=== PATIENT | female | born 1975 | race Caucasian/White ===

== ENCOUNTER 2018-09-02 01:43 | Outpatient (CLI) | payer OTHER, SELFPAY ==
[2018-09-02 07:48] LABS: Abs Immature Grans 0.01 k/cumm (0.0-0.09); Absolute Basophil Count 0.02 k/cumm (0.0-0.2); Absolute Eosinophil Count 0.22 k/cumm (0.0-0.7); Absolute Lymphocyte Count 2.04 k/cumm (1.2-3.4); Absolute Monocyte Count 0.52 k/cumm (0.11-0.7); Absolute Neutrophil Count 4.52 k/cumm (1.2-6.7); Basophils % 0.3; HCT 38.7 % (36.0-46.0); HGB 12.9 g/dL (12.0-15.5); Immature Grans % 0.1; Lymphocytes % 27.8; Mean Corp. HGB Concentration 33.3 g/dL (32.0-36.0); Mean Corpuscular Hemoglobin 29.5 pg (27.0-33.0); Mean Corpuscular Volume 88.4 fL (80-95); Mean Platelet Volume 9.4 fL (8.0-11.0); Monocytes % 7.1; Neutrophils % 61.7; Platelet Count 288 x1000/uL (130-400); RBC 4.38 m/cumm (4.00-5.20); RBC Distribution Width 12.9 % (11.7-14.6); White Blood Cell Count 7.33 k/cumm (4.4-10.8)
[2018-09-02 08:33] LABS: ALT 17 U/L (12-78); AST 10 U/L (15-37); Albumin 3.6 g/dL (3.4-5.0); Alkaline Phosphatase 65 U/L (46-116); Anion Gap 10.2 mmol/L (3-11); BUN 15 mg/dL (7-18); Bilirubin, Total 0.4 mg/dL (0.2-1.0); CO2 26.8 mmol/L (21.0-32.0); CREATININE 0.88 mg/dL (0.55-1.02); Calcium 8.6 mg/dL (8.5-10.1); Chloride 103 mmol/L (98-107); Glucose 99 mg/dL (70-100); Sodium 140 mmol/L (136-145); Total Protein 7.2 g/dL (6.4-8.2)
== END 2018-09-02 02:03 ==
PROVIDERS: PCP Family Medicine; Visit Provider Internal Medicine
DX: R10.9 Unspecified abdominal pain (principal)
CPT/HCPCS: 36415; 80053; 85025

== ENCOUNTER 2018-09-03 00:38 | Outpatient (CLI) | payer OTHER, SELFPAY ==
--- NOTE | 2018-09-03 09:00 | DI.CT_ITS ---
SYMPTOM/DIAGNOSIS: RT ABD PAIN, R10.[address]: CT scan of the abdomen and pelvis was performed following the uneventful administration of intravenous and oral contrast material. Comparison is made with 07/19/07. The visualized lung bases are clear. The liver is normal in size. There is again seen a 1.3 cm. enhancing mass in the posterior segment of the right lobe of the liver most suggestive of a hepatic hemangioma. It is unchanged in size and appearance compared to the prior examination. No suspicious hepatic lesions are seen. The portal and superior mesenteric veins are patent. The patient is status post cholecystectomy. No biliary ductal dilatation is present. The pancreas is unremarkable as are the spleen and adrenal glands. The kidneys show normal and symmetric enhancement. No evidence of a solid renal mass or obstruction is present. The urinary bladder is intact. There is a tampon seen in the vagina. The reproductive organs are otherwise unremarkable. The abdominal aorta is of normal caliber. No significant abdominal or pelvic adenopathy, ascites or pneumoperitoneum is present. Note is made of a moderate sized fat containing anterior abdominal wall hernia. The hernia lies approximately 11 cm. superior to the umbilicus. There is diverticulosis of the colon but no evidence of acute diverticulitis. The bowel shows no evidence of obstruction or inflammation. There is a normal appendix present. The bones are intact. Mild degenerative changes are seen in the spine. IMPRESSION: 1. No evidence of an acute abdomen. 2. Moderate sized fat containing upper anterior abdominal wall hernia. 3. Colonic diverticulosis but no evidence of acute diverticulitis.
[2018-09-03] MEDS: Omnipaque 350 MG/ML 50 ML BTL IJ (09:56)
[2018-09-03] MEDS: Breeza Beverage 473 ML BTL PO (09:57)
[2018-09-03] MEDS: Omnipaque 350 MG/ML 100 ML BTL IJ (09:59)
== END 2018-09-03 00:58 ==
PROVIDERS: PCP Family Medicine; Visit Provider Internal Medicine
DX: R10.31 Right lower quadrant pain (principal); K43.9 Ventral hernia without obstruction or gangrene; K57.30 Diverticulosis of large intestine without perforation or abscess without bleeding
CPT/HCPCS: 74177; J3490; Q9967

== ENCOUNTER 2018-11-12 07:28 | Day surgery (SDC) | payer OTHER, SELFPAY ==
[2018-11-12 07:56] VITALS: BP 124/70; PULSE 96; RESP 16; TEMP 36; O2SAT 96
[2018-11-12] MEDS: Lactated Ringers 1,000 ML 30 ML IV ×2 (08:30→11:21)
[2018-11-12] MEDS: Bupivacaine 0.25% Pres-Free 30 ML VIAL ×2 (10:30→11:41)
--- NOTE | 2018-11-12 11:10 | HERN_PTH ---
PATIENT: Davina Dixon LOC: [facility] U#:[id number] AGE/SX: 42/F ROOM: RE11/12/[address]: Jeevan Thomas III : 1975 BED: DIS: 11/12/2018 SPEC #: [id number] RECD: 11/12/18 12:57 STATUS: OSCAR REPrincess #: [id number] GILBERTO: 11/12/18 11:[address]: Jeevan Thomas III DEPT: Surgical Specimen RECD BY: Whitney Ross ENTERED: 11/12/18 12:58 SP TYPE: Hernia Sac OTHR DR: Roseann Davalos MD Tissues: 1 - HERNIA SAC,OTHER Procedures: GROSS AND MICRO LEVEL 2 Comments: [id number]
--- NOTE | 2018-11-12 11:52 | W.PM.OP ---
Date of service: 11/12/18 Time of Service: 11:56 Operative Note DATE OF PROCEDURE: 11/12/18 PRE-OP DIAGNOSIS: incarcerated incisional epigastric hernia POST-OP DIAGNOSIS: same PROCEDURE: primary repair of incarcerated incisional hernia, layered closure SURGEON: Jeevan Thomas III ASSISTING SURGEON: Slime Sales ANESTHESIA: GETA ESTIMATED BLOOD LOSS: 10 PATHOLOGY: other COMPLICATIONS: None Patient was transported to: PACU Patient's condition: stable Indications: pt had 1.9x1.4cm hernia seen on ct pt explained the RBA and a primary repair was chosen her biggest risk factor for recurrence is obesity Findings: large 8cm fat most likely falciform Procedure Description: pt underwent TAP abd block, timeout done abd preped and draped local given, ioban applied 3cm incision blunt disection to the hernia the defect was identified and was as big as my index finger there was a considerable incarcerated fat most likely falciform this could not be reduced and this was amputated with cautery the defect was closed with 5 interupted vertical matress o-prolene copious irrigation layered closure of the wound with 2-0 vicryl, 4-0 monocryl and dermabond debriefing done pt dc home pt notified of case findings
--- NOTE | 2018-11-12 11:53 | W.PM.DSUDISC ---
Discharge Plan Disposition Patient Disposition: HOME Condition: Stable Discharge Details Reason For Visit: incisional hernia Attending Provider: Jeevan Thomas III Primary Care Provider: Rsoeann Davalos Home Meds and New Rx's Prescriptions: New acetaminophen [Tylenol 8 Hour] 650 mg tablet extended release 650 mg PO Q6H PRN PRN (Reason: fever or pain) Qty: 30 RF: 0 ibuprofen 600 mg tablet 600 mg PO QID PRN (Reason: fever or pain) Qty: 30 RF: 0 Discharge Instructions Referrals: Jeevan Thomas III, DO [OSTEOPATHIC DOCTOR] - Activity:: Activity as Tolerated Shower/Bathe:: 24 hours Diet:: As Tolerated Discharge Orders Discharge Orders: Discharge Order (Routine); Ordered 11/12/18 Ordered By: Jeevan Thomas III
[2018-11-12 12:30] VITALS: BP 122/80; PULSE 71; RESP 18; TEMP 37; O2SAT 96
[2018-11-12 13:30] VITALS: BP 112/68; PULSE 89; RESP 16; TEMP 37.8; O2SAT 97
[2018-11-12] MEDS: oxyCODONE 5 MG TAB PO (13:30)
--- NOTE | 2018-11-12 14:27 | W.PM.DSUDISC ---
Discharge Plan Disposition Patient Disposition: HOME Condition: Stable Discharge Details Reason For Visit: incisional hernia Attending Provider: Jeevan Thomas III Primary Care Provider: Roseann Davalos Home Meds and New Rx's Prescriptions: New acetaminophen [Tylenol 8 Hour] 650 mg tablet extended release 650 mg PO Q6H PRN PRN (Reason: fever or pain) Qty: 30 RF: 0 ibuprofen 600 mg tablet 600 mg PO QID PRN (Reason: fever or pain) Qty: 30 RF: 0 oxycodone [OxyContin] 10 mg tablet,oral only,ext.rel.12 hr 10 mg PO Q12H PRN (Reason: pain) Qty: 10 RF: 0 Discharge Instructions Instructions: Open Herniorrhaphy (DC) Stand Alone Forms: Anes.Nerve Block Instructions, DSU Post op Instructions, Jeanne Gallegos (DSU) Referrals: Jeevan Thomas III, DO [OSTEOPATHIC DOCTOR] - Activity:: Activity as Tolerated Shower/Bathe:: 24 hours Diet:: As Tolerated Discharge Orders Discharge Orders: Discharge Order (Routine); Ordered 11/12/18 Ordered By: Jeevan Thomas III
== END 2018-11-12 14:46 | disposition home or self-care (01) ==
PROVIDERS: PCP Family Medicine; Visit Provider Surgery
PROC: 0WQF4ZZ Repair Abdominal Wall, Percutaneous Endoscopic Approach (ICD-10-PCS; CPT 49560; principal; 2018-11-12 09:00)
DX: K43.6 Other and unspecified ventral hernia with obstruction, without gangrene (principal); K21.9 Gastro-esophageal reflux disease without esophagitis
CPT/HCPCS: 49560; 76942; 81025; 88302; J0131; J0690; J1100; J1885; J2250; J2405; J3010

== ENCOUNTER 2020-04-26 10:31 | Outpatient (CLI) | payer BC, SELFPAY ==
[2020-04-28 04:56] LABS: SARS-CoV-2 RNA Undetected (Undetected); SARS-CoV-2 Specimen Source Nasopharynx
== END 2020-04-26 10:51 ==
PROVIDERS: PCP Family Medicine; Visit Provider Family Medicine
DX: Z11.59 Encounter for screening for other viral diseases (principal)
CPT/HCPCS: U0003

== ENCOUNTER 2020-10-01 16:38 | Outpatient (REF) | payer OTHER, SELFPAY ==
[2020-10-03 22:14] LABS: Patient Race White; SARS-CoV-2 RNA Undetected (Undetected); SARS-CoV-2 Specimen Source Nasal
== END 2020-10-01 16:58 ==
LOC: LBN 16:38
PROVIDERS: PCP Family Medicine; Visit Provider Nurse Practitioner Adult Health
DX: R05 Cough (principal); R06.2 Wheezing; R09.82 Postnasal drip
CPT/HCPCS: U0003

== ENCOUNTER 2020-10-08 03:36 | Outpatient (CLI) | payer OTHER, SELFPAY ==
--- NOTE | 2020-10-08 12:26 | DI.RAD_ITS ---
EXAM: XR CHEST 2V PA LATERAL CLINICAL HISTORY: Cough,WHEEZE,R05,R06.2 TECHNIQUE: 2D digital imaging was performed. COMPARISON: CR LEFT SHOULDER COMPLETE from 11/28/2015 FINDINGS: MEDIASTINUM: Normal. HEART: Normal. PULMONARY VASCULATURE: Normal. No peribronchial thickening. LUNGS: Clear. No visible interstitial changes or emphysematous changes. PLEURAL SPACE: No pleural effusion or pneumothorax. BONE:Normal. IMPRESSION: No acute pulmonary findings. DATA REPOSITORY: RADIATION DOSE DELIVERED:
== END 2020-10-08 03:56 ==
PROVIDERS: PCP Family Medicine; Visit Provider Nurse Practitioner Adult Health
DX: R05 Cough (principal); R06.2 Wheezing
CPT/HCPCS: 71046

== ENCOUNTER 2021-09-19 17:21 | Outpatient (REF) | payer OTHER, SELFPAY ==
--- NOTE | 2021-09-19 15:40 | PAPFT_PTH ---
PATIENT: Davina Dixon LOC: [facility]#:[id number] AGE/SX: 45/F ROOM: RE09/19/[address]: Roseann Davalos MD : 1975 BED: DIS: 09/19/2021 SPEC #: [id number] RECD: 09/20/21 13:01 STATUS: OSCAR REQ #: [id number] GILBERTO: 09/19/21 15:[address]: Roseann Davalos DEPT: [facility] Cytology RECD BY: Whitney Ross ENTERED: 09/20/21 13:02 SP TYPE: PAPFT OTHR DR: Timbo Cevallos Tissues: 1 - CX/ENDOCX FOR PAP SMEARS Procedures: PAP THIN PREP/UVM Screening HPV DNA PROBE Comments: [id number]
== END 2021-09-19 17:22 | disposition home or self-care (01) ==
LOC: LBN 17:21
PROVIDERS: PCP Family Medicine; Visit Provider Family Medicine
DX: Z12.4 Encounter for screening for malignant neoplasm of cervix (principal); Z11.51 Encounter for screening for human papillomavirus (HPV)
CPT/HCPCS: 88142; 87624

== ENCOUNTER 2022-01-18 01:57 | Outpatient (CLI) | payer OTHER, SELFPAY ==
--- NOTE | 2022-01-18 07:00 | DI.MAMMO_ITS ---
Exam(s) MAMMO SCREENING EXAM: MAMMO SCREENING CLINICAL HISTORY: screening,z12.39. TECHNIQUE: Bilateral full field digital CC and MLO mammographic images were obtained with 3D tomosyn thesis and utilizing computer aided detection (CAD). COMPARISON: None. This is a baseline screening mammogram on this 46-year-old patient with no breast complaints and no immediate family history. FINDINGS: No significant radiograph findings in right breast. In the left breast there is asymmetric density possible nodule seen the cc view located 7 cm from nip ple, laterally and measuring approximately 5 x 3 millimeters. Slightly medial to this is another asy mmetric density, being less concerning on 3D imaging. There are no malignant-appearing microcalcification groups in this region or elsewhere in either [address]. There is no significant architectural distortion nor skin thickening-retraction. IMPRESSION: 1. No radiographic evidence of malignancy in right breast. 2. Possible nodules towards the lateral aspect of the left breast. Spot compression views and ultras ound left breast recommended. BI-RADS Category 0 - Assessment Incomplete: Need additional imaging evaluation Breast Density - Category B - Scattered areas of fibroglandular density Breast density Category C or D implies that the patient has dense breast tissue. Dense breast tissue can make it harder to find cancer on a mammogram. Dense breast tissue is also associated with an incr eased risk of breast cancer. This information about the result of the mammogram report was provided to the patient to raise their awareness. Use this report when you speak with the patient about their risks for breast cancer, which includes their family history. At that time, you may recommend additional screening tests (Ultrasoun d or MRI) as these tests may add significant information. A negative radiographic report should not delay biopsy if a dominant or clinically suspicious mass is present. Up to ten percent of cancers are not identified on mammography. A negative report may reinforce clinical impression. Adenosis and dense breasts may obscure an underlying neoplasm. False positive reports average 6 to 10%. Patient will receive a letter notifying them of these results.
== END 2022-01-18 02:17 ==
PROVIDERS: PCP Family Medicine; Visit Provider Family Medicine
DX: Z12.31 Encounter for screening mammogram for malignant neoplasm of breast (principal); R92.8 Other abnormal and inconclusive findings on diagnostic imaging of breast
CPT/HCPCS: 77063; 77067

== ENCOUNTER 2022-02-02 02:52 | Outpatient (CLI) | payer OTHER, SELFPAY ==
--- NOTE | 2022-02-02 | DI.MAMMO_ITS ---
Exam(s) MG MAMMO SCREEN CALL BACK UNI US BREAST LT LIMITED EXAM: MG MAMMO SCREEN CALL BACK UNI CLINICAL HISTORY: POSSIBLE NODULE LEFT BREAST. TECHNIQUE: Cc and MLO spot-compression views with tomography and left breast ultrasound. COMPARISON: 18 January 2022 FINDINGS: Mammography/Tomosynthesis: Masses: Persistent 5 millimeter nodule lateral breast. Architectural Distortion: None seen. Microcalcifictions: No suspicious pleomorphic-type are seen. Skin Thickening/Nipple Retraction: None. Left breast US: Echotexture: Normal appearance of the glandular tissue. Shadowing: No suspicious foci. Cyst: 5 millimeter cluster of cysts in the 2 o'clock position 3 centimeters from the nipple.. Solid lesions: None seen. Ductal dilation: None. IMPRESSION: 1. No evidence of malignancy is noted. 2. Unless there is more urgent need, follow-up screening mammography is recommended, as per [place] [employer] guidelines. 3. The findings were discussed with the patient on the date of the examination. BI-RADS Category 2 - Benign Findings Breast Density - Category B - Scattered areas of fibroglandular density Breast density category C or D implies that the patient has dense breast tissue. Dense breast tissue is very common and is not abnormal but dense breast tissue can make it harder to find cancer on a ma mmogram. Also, dense breast tissue may increase their breast cancer risk. This information about the result of the mammogram report was provided to the patient to raise their awareness. Use this report when you speak with the patient about their risks for breast cancer, which includes their family hist ory. At that time, you may recommend for more screening tests (Ultrasound or MRI) as they might be us eful based on their risk. A negative radiographic report should not delay biopsy if a dominant or clinically suspicious mass is present. Up to ten percent of cancers are not identified on mammography. A negative report may reinforce clinical impression. Adenosis and dense breasts may obscure an underlying neoplasm. False positive reports average 6 to 10%. Patient will receive a letter notifying them of these results.
== END 2022-02-02 03:12 ==
PROVIDERS: PCP Family Medicine; Visit Provider Family Medicine
DX: R92.8 Other abnormal and inconclusive findings on diagnostic imaging of breast (principal)
CPT/HCPCS: 76642; 77063; 77067

== ENCOUNTER 2024-05-26 07:31 | Day surgery (SDC) | payer BC, SELFPAY ==
--- NOTE | 2024-05-25 13:49 | PDOC.DSDIS_ITS ---
Date of service: 05/26/24 Time of Service: 09:23 Discharge Plan Disposition Patient Disposition: Home Condition: Good Discharge Details Reason For Visit: screening colonoscopy Attending Provider: Pj Siegel Primary Care Provider: Patrick Buenrostro Home Meds and New Rx's Prescriptions: Continued albuterol sulfate [ProAir HFA] 90 mcg/actuation HFA aerosol inhaler 2 puff inhalation Q6H PRN (Reason: shortness of breath or wheezing) Qty: 6.7 1RF fluticasone propion-salmeterol [Advair HFA] 45-21 mcg/actuation HFA aerosol inhaler 2 puff inhalation BID Qty: 8 3RF acetaminophen [Tylenol 8 Hour] 650 mg tablet extended release 650 mg PO Q6H PRN PRN (Reason: fever or pain) Qty: 30 0RF ibuprofen 600 mg tablet 600 mg PO QID PRN (Reason: fever or pain) Qty: 30 0RF Discontinued bisacodyl [Dulcolax (bisacodyl)] 5 mg tablet,delayed release (DR/EC) 5 mg PO ONCE Qty: 4 0RF polyethylene glycol 3350 17 gram/dose powder 238 g PO ONCE Qty: 238 0RF Rx Instructions: Colonoscopy Bowel Prep- Per Instructions Discharge Instructions Instructions: Colon polyps, Diverticulosis Additional Instructions: Johanna, we are able to complete your colonoscopy today without any difficulty. Your prep was excellent, negative everything fine. You did have 2 polyps, which I removed today. They were in very close proximity to 1 another. These will both be sent off for testing, and once I know the nature of these polyps, that will help guide the timing of your next colonoscopy. Those results usually take about a week or so, but as soon as they are available, the office will let you know. Incidentally, you also have a little bit of diverticulosis. Diverticula are small weak spots in the muscular part of the colon wall. This causes little pockets to form. They can get infected and inflamed. When that happens, patients often times have pain that usually across the left lower side of their abdomen. Recall these episodes of inflammation diverticulitis. It is often times treated with antibiotics. 1. If tolerated, consume a soft, low fiber diet for 1-2 days. 2. Do not drive, drink alcohol, operate machinery, make critical decisions, or do activities that require coordination or balance for 24 hours. 3. Because air was put into your colon during the procedure, expelling air from your rectum (passing gas or farting) is normal. 4. You may not have a bowel movement for 1-3 days because of the colonoscopy prep. This is normal. 5. Go directly to the emergency room if you notice any of the following: Develop chills (warm to touch), or if you have a thermometer and your temperature is above 101 Difficulty breathing or difficultly swallowing Persistent vomiting Severe abdominal pain, other than gas cramps Severe chest pain Black, tarry stools Any bleeding ? exceeding one tablespoon 6. Call your physician if the site where your intravenous was started becomes re d, swollen, painful, and warm to touch. 7. Your physician has reviewed your pre-procedure medications. Please continue to take those medications as previously ordered. You will be given specific information/education regarding any changes to your medications before leaving. Activity:: Activity as Tolerated Diet:: As Tolerated Discharge Orders Discharge Orders: Discharge Order (Routine); Ordered 05/25/24 Ordered By: Pj Siegel DS: Diagnosis Discharge Diagnosis (1) Encounter for screening colonoscopy: Status: Acute Asessment and Plan: Follow-up on polypectomy results
--- NOTE | 2024-05-25 13:51 | COLE_ITS ---
Date of service: 05/26/24 Time of Service: : Colonoscopy Report Date of procedure: 05/26/24 Pre-op diagnosis general: screening colonoscopy Post-op diagnosis procedure note: other (Colon polyps, diverticulosis) Procedure: colonoscopy with polypectomy Surgeon: Pj Siegel Anesthesia Type: General:No Airway Estimated blood loss (mL): 5 Pathology: other (0.25 cm flat polyp in the ascending colon, 0.75 cm flat polyp in the ascending colon) Complications: None Disposition: same day Indications: Davina is a 48 year old woman who needs a screening colonoscopy Prep: Miralax/Dulcolax Procedure Start Time: 08:59 Procedure End Time: 09:16 Retraction Time: 5 Findings: Sigmoid diverticulosis, 0.25 cm polyp in the ascending colon, 0.75 cm polyp in the ascending colon Procedure Description: After the induction of monitored anesthetic care, and with the patient in left lateral decubitus position, I began by performing an external anorectal exam.? Perineum and skin were normal, as was the anal verge.? There was no evidence of external hemorrhoids.? Next, I performed a digital rectal exam.? I did not appreciate any abnormal findings.? Next, I advanced a colonoscope into the rectal vault.? I performed retroflexion.? This appeared normal.? Using insufflation, I then advanced the colonoscope beyond the rectal folds and into the sigmoid colon before advancing towards the cecum.? The quality of the prep was outstanding. there were some occasional sigmoid diverticuli.? While proceeding towards the cecum, I did notice a polyp within the ascending colon. In fact, there were actually 2 polyps just adjacent to 1 another. One of them was 0.25 cm and flat. This was removed with cold forceps polypectomy. The other was longer, I would estimate 0.75 cm in its longest dimension, however it was quite narrow. This was removed in piecemeal using cold forceps polypectomy as well. The scope was noted to be in the cecum by identification of the ileocecal valve and appendiceal orifice.? I then began withdrawing the colonosc ope using repeated irrigation as necessary for full evaluation of the colonic mucosa. ?Once the scope was withdrawn to the level of the rectum, great care was taken to examine portions of the rectal folds.? Finally, the scope was withdrawn and the patient was brought to the same-day surgery recovery unit as the anesthetic wore off. ?The findings and instructions were shared with the patient prior to discharge. [place] Bowel Prep [place] Bowel Prep Right Colon: 3 Left Colon: 3 Transverse Colon: 3 Total Score: 9
--- NOTE | 2024-05-26 06:38 | W.ANESPRE ---
General Info Date of Service Date Performed: 05/26/24 Height: 5 ft 4.5 in Weight: 97.522 kg Body Mass Index (BMI): 36.3 Surgical Procedure: Operation Date: 05/26/24 09:05 Proposed Procedure Side Surgeon amor Siegel MD Meds Allergies and Home Medications Allergies Allergy/AdvReac Type Severity Reaction Status Date / Time mold AdvReac Mild Unknown Uncoded 05/26/24 08:00 Home Medication ?Medication ?Instructions ?Recorded acetaminophen 650 mg 650 mg PO Q6H PRN PRN fever or 11/12/18 tablet,extended release (Tylenol 8 pain #30 tabs Hour) ibuprofen 600 mg tablet 600 mg PO QID PRN fever or pain 11/12/18 #30 tabs albuterol sulfate 90 mcg/actuation 2 puff inhalation Q6H PRN 01/04/21 aerosol inhaler (ProAir HFA) shortness of breath or wheezing #6.7 grams fluticasone propionate 45 2 puff inhalation BID #8 grams 01/07/21 mcg-salmeterol 21 mcg/actuation HFA inhaler (Advair HFA) Current Visit Medications: Current Medications Generic Name Dose Route Start Last Admin Trade Name Freq PRN Reason Stop Dose Admin Ringer's Solution 1,000 mls @ 80 mls/hr 05/26/24 06:00 IV 05/26/24 23:59 INFUSION MARIAH IV Miscellaneous Supplies 1 each 05/26/24 06:00 Iv Access IV 05/26/24 23:59 DIRECTED MARIAH Ondansetron HCl 4 mg 05/25/24 13:52 Ondansetron 4 Mg/2 Ml Vial IVP 06/24/24 13:51 Q4H PRN PRN Nausea / Vomiting Sodium Chloride 0 ml 05/26/24 06:00 Normal Saline Flush 10 Ml Syr IV 05/26/24 23:59 PRN PRN Sodium Chloride 0 ml 05/26/24 06:00 Normal Saline 10 Ml Vial IJ 05/26/24 23:59 DIRECTED PRN Sterile Water 0 ml 05/26/24 06:00 Water,Injection,Sterile 10 Ml Vial IJ 05/26/24 23:59 DIRECTED PRN PFSH Active Problems Active Problems: Problem Status Onset Code Encounter for screening colonoscopy Acute Z12.11 Wart of hand Acute B07.9 Screening for hyperlipidemia Acute Z13.220 Fatigue Acute R53.83 Premenstrual syndrome Acute N94.3 Well woman exam with routine gynecological exam Acute Z01.419 Paronychia Acute Soft tissue infection Acute L08.9 Bronchitis Acute J40 Incisional hernia of anterior abdominal wall without obstruction or gangrene Acute K43.2 Rosacea Acute 04/15/13 L71.9 Depression Acute F32.9 Acute bilateral low back pain without sciatica Acute 04/17/16 M54.5 Medical History Medical History Chalazion left upper eyelid Surgical History Surgical History History of ventral hernia repair (11/12/18) incarcerated, 11/12/18, Dr Jeevan Thomas, [facility] History of cholecystectomy Tobacco Smoking/Tobacco Use Status: Never Passive smoking exposure: No Second hand exposure: No Alcohol Alcohol Intake: current Alcohol intake frequency: a few times a month Alcohol type: wine and hard liquor Substance Use Substance use: Never Substance use type: does not use Prental History History 2 Para 2 Hx # Term Pregnancies 2 Multiple births Hx # Pregnancies Ectopic pregnancies AB induced Hx Number of Living Children 2 AB spontaneous Vital Signs and Lab Results Vital Signs Most Recent Vital Signs in EMR: Temp Pulse Resp BP Pulse Ox 36.3 C L 70 16 111/76 97 05/26/24 07:40 05/26/24 07:40 05/26/24 07:40 05/26/24 07:40 05/26/24 07:40 Lab Results Blood Type / Crossmatch: No Data to Display Complete Blood Count: No Data to Display Complete Metabolic Panel: No Data to Display Liver Function Panel: No Data to Display Coagulation Panel: No Data to Display Cardiac Panel: No Data to Display Arterial Blood Gas: No Data to Display Venous Blood Gas: No Data to Display Pancreas Panel: No Data to Display Thyroid Panel: No Data to Display Infectious Disease: No Data to Display Blood Cultures: No Data to Display Toxicology Panel: No Data to Display Panel: No Data to Display Anesthesia Assessment and Plan Anesthesia History Personal History: No History of Anesthesia Complications Family History: No Family History of Anesthesia Complications Exercise Tolerance Exercise Tolerance: Metabolic Equivalents>4 Pertinent Negatives Pertinent Negatives: No Symptoms of GERD Cardiac & Pulmonary Exam Cardiac Exam: Normal S1/S2 Heart Sounds Pulmonary Exam: Clear Bilateral Breath Sounds Implantable Cardiac Device Does patient have a Pacemaker or an ICD?: No Airway Exam Known Difficult Airway: No Mallampati Class: 1 Mouth Opening: Normal (> 3cm) Thyromental Distance: Greater than 3 cm Neck Range of Motion: Full ROM Neck Circumference: Normal Teeth Condition: Normal Dentition ASA Classification ASA Score: ASA 2 Emergency Case?: No NPO Status NPO Status: NPO Clears >2 hours, Solids >8 hours Status Status: Negative HCG Anesthesia Plan Resuscitation Status: Full Code Anesthesia Technique: General Anesthesia Airway Planned: Natural Airway Monitors Used: Standard Monitors
[2024-05-26 07:40] VITALS: BP 111/76; PULSE 70; RESP 16; TEMP 36.3; O2SAT 97
[2024-05-26] MEDS: Lactated Ringers 1,000 ML 80 ML IV (08:05)
[2024-05-26 08:14] VITALS: BMI 36.3
--- NOTE | 2024-05-26 09:06 | BOWEL_PTH ---
PATIENT: Davina Dixon LOC: [facility] U#:[id number] AGE/SX: 48/F ROOM: RE05/26/[address]: Pj Siegel MD : 1975 BED: DIS: 05/26/2024 SPEC #: [id number] RECD: 05/26/24 12:43 STATUS: OSCAR REQ #: [id number] GILBERTO: 05/26/24 09:[address]: Pj Siegel DEPT: Surgical Specimen RECD BY: Whitney Ross ENTERED: 05/26/24 12:44 SP TYPE: Bowel OTHR DR: Patrick Reynolds DNP Tissues: 1 - BIOPSY BOWEL Procedures: GROSS AND MICRO LEVEL 4 Comments: [id number]
[2024-05-26 09:20] VITALS: BP 92/74; PULSE 73; RESP 16; TEMP 36.6; O2SAT 97
--- NOTE | 2024-05-26 09:48 | W.ANESPOSTOP ---
Postoperative Evaluation Date, Time and Location Date Performed: 05/26/24 Time Performed: : Patient Location: Day Surgery Unit Vital Signs Most Recent Imported Vital Signs: Most Recent Vital Signs Temp Pulse Resp BP Pulse Ox 36.6 C 73 16 92/74 L 97 05/26/24 09:20 05/26/24 09:20 05/26/24 09:20 05/26/24 09:20 05/26/24 09:20 Pain Score Most Recent Pain Score: Most Recent Pain Score Pain Level 0 05/26/24 09:20 Assessment Mental Status: Awake (Alert & Oriented to Patient Baseline) Airway and Respiratory Function: Patent airway with normal (patient baseline) respiratory exam Cardiovascular Function: Hemodynamically Stable Hydration Status: Adequately Hydrated Nausea & Vomiting: No Nausea or Vomiting Pain: Pt. Denies Any Pain Peripheral Nerve Block: Patient did not receive a nerve block
[2024-05-26 09:49] VITALS: BP 108/67; PULSE 60; RESP 16; TEMP 36.6; O2SAT 98
== END 2024-05-26 10:06 | disposition home or self-care (01) ==
LOC: SUR 07:32
PROVIDERS: PCP Nurse Practitioner Family; Visit Provider Surgery
PROC: 0DJD8ZZ Inspection of Lower Intestinal Tract, Via Natural or Artificial Opening Endoscopic (ICD-10-PCS; CPT 45378; principal; 2024-05-26 09:00)
DX: Z12.11 Encounter for screening for malignant neoplasm of colon (principal); D12.2 Benign neoplasm of ascending colon; K57.30 Diverticulosis of large intestine without perforation or abscess without bleeding
CPT/HCPCS: 45380; 81025; 88305; J1885; J2704

== ENCOUNTER 2024-08-15 07:41 | Outpatient (CLI) | payer BC, SELFPAY ==
[2024-08-15 07:39] LABS: HCT 40.4 % (36.0-46.0); HGB 13.2 g/dL (11.2-15.7); MCH 29.1 pg (27.0-33.0); MCHC 32.7 % (32.0-36.0); MCV 89 fL (80-95); MPV 8.9 fL (8.0-11.0); Platelet Count 312 10^3/uL (130-400); RBC 4.53 10^6/uL (3.93-5.22); RDW 12.9 % (11.7-14.6); RDW-SD 42.4 fL; WBC 5.96 10^3/uL (4.4-10.8)
[2024-08-15 08:31] LABS: Iron 87 ug/dL (50-170)
[2024-08-15 08:48] LABS: ALT 19 U/L (14-59); AST 12 U/L (15-37); Albumin 3.9 g/dL (3.4-5.0); Alkaline Phosphatase 65 U/L (46-116); Anion Gap 9.6 mmol/L (3-11); BUN 17 mg/dL (7-18); Bilirubin, Total 0.52 mg/dL (0.2-1.0); CO2 27.4 mmol/L (21.0-32.0); Chloride 107 mmol/L (98-107); Estimated GFR 69.06 (mL/min/1.73m2); Glucose 103 mg/dL (74-106); Potassium 4.2 mmol/L (3.5-5.1); Sodium 144 mmol/L (136-145); TSH (W/Ref FT4) 1.76 uIU/mL (0.36-3.74); Total Protein 7.9 g/dL (6.4-8.2); Vitamin D 25 Total 18.6 ng/mL (30-100)
[2024-08-15 20:21] LABS: HIV-1/2 Ag & Ab Screen Negative (Negative)
[2024-08-18 10:36] LABS: Hepatitis C Ab w Rflx HCV PCR Negative (Negative)
[2024-08-20 15:34] LABS: Apolipoprotein B, Serum 88 mg/dL (48-124); Beta VLDL Cholesterol Not Detected mg/dL (<15); Beta VLDL Triglycerides Not Detected mg/dL (<15); Cholesterol, Total, CDC 191 mg/dL; Chylomicron Cholesterol Not Detected; Chylomicron Triglycerides Not Detected; HDL Cholesterol, CDC 51 mg/dL (>=50); LDL Cholesterol 102 mg/dL; LDL Triglycerides 28 mg/dL (<=50); Lp(a) Cholesterol 15 mg/dL (<5); LpX Not detected; Triglycerides, CDC 100 mg/dL; VLDL Cholesterol 23 mg/dL (<30); VLDL Triglycerides 56 mg/dL (<120)
== END 2024-08-15 07:42 | disposition home or self-care (01) ==
LOC: LBO 07:42
PROVIDERS: PCP Nurse Practitioner Family; Visit Provider Nurse Practitioner Family
DX: R53.83 Other fatigue (principal); Z13.220 Encounter for screening for lipoid disorders; F32.9 Major depressive disorder, single episode, unspecified; Z11.59 Encounter for screening for other viral diseases; Z11.4 Encounter for screening for human immunodeficiency virus [HIV]
CPT/HCPCS: 36415; 80053; 80061; 82306; 85027; 86803; 87389; 82172; 82664; 83540; 84443